=== PATIENT | female | born 1995 | race Caucasian/White ===

== ENCOUNTER 2017-09-29 16:15 | Observation (INO) | payer OTHER ==
[~2017-09-29] VITALS: Ht 167.6 cm; Wt 116.4 kg
[2017-09-29 19:51] VITALS: BP 123/68
[2017-09-29 20:17] VITALS: BP 118/67
== END 2017-09-29 21:10 | disposition home or self-care (01) ==
LOC: LDOP 16:15 → LDIP 16:28
PROVIDERS: ADMIT Obstetrics & Gynecology; ATTEND Obstetrics & Gynecology
DX: O26.893 Other specified pregnancy related conditions, third trimester (principal); R10.9 Unspecified abdominal pain; Z3A.38 38 weeks gestation of pregnancy
CPT/HCPCS: 36415; 59025; 76819; 85460; 86850; 86900; G0378; J2790; 96372

== ENCOUNTER 2017-11-16 14:42 | Emergency (ER) | payer OTHER ==
[~2017-11-16] VITALS: Ht 167.6 cm; Wt 120.0 kg
[~2017-11-16 14:42] MED LIST: PREN1TAB69 PO
[2017-11-16] MEDS ORDERED: MORPHINE SULFATE 4 MG/ML, 1ML IVPush PRN (15:30)
[2017-11-16] MEDS ORDERED: MORPHINE SULFATE 4 MG/ML, 1ML ONE (15:34)
[2017-11-16 15:41] LABS: BASOPHILS # (AUTO) 0.01 x10^3/uL (0-0.1); BASOPHILS % (AUTO) 0 % (0-1); EOSINOPHILS # (AUTO) 0.02 x10^3/uL (0-0.4); EOSINOPHILS % (AUTO) 0 % (1-7); LYMPHOCYTES # (AUTO) 1.51 x10^3/uL (1-3.4); LYMPHOCYTES % (AUTO) 9 % (22-44); MD NO; MEAN CORPUSCULAR VOLUME 82.3 fL (80-100); MEAN PLATELET VOLUME 8.7 fL (7.4-10.4); MONOCYTES # (AUTO) 0.43 x10^3/uL (0.2-0.8); MONOCYTES % (AUTO) 3 % (2-9); NEUTROPHILS # (AUTO) 14.72 x10^3/uL (1.8-6.8); NEUTROPHILS % (AUTO) 88 % (42-75); PLATELET COUNT 301 x10^3/uL (130-400); RED BLOOD COUNT 4.66 x10^6/uL (3.82-5.3); RED CELL DISTRIBUTION WIDTH 13.4 % (9.6-15.2)
[2017-11-16 15:50] LABS: ANION GAP 10 mmol/L (5-15); CHLORIDE 107 mmol/L (98-107); CREATININE 0.86 mg/dL (0.55-1.02)
[2017-11-16 15:51] LABS: ALANINE AMINOTRANSFERASE 27 U/L (12-78); ALBUMIN 2.8 g/dL (3.4-5.0)
[2017-11-16 15:53] LABS: ALKALINE PHOSPHATASE 155 U/L (45-117); BILIRUBIN,TOTAL 0.5 mg/dL (0.2-1.0); TOTAL PROTEIN 7.4 g/dL (6.4-8.2)
[2017-11-16 17:56] VITALS: BP 120/73
== END 2017-11-16 17:58 | disposition home or self-care (01) ==
LOC: ED 16:18
DX: O26.893 Other specified pregnancy related conditions, third trimester (principal); Z3A.41 41 weeks gestation of pregnancy; K80.70 Calculus of gallbladder and bile duct without cholecystitis without obstruction
CPT/HCPCS: 36415; 76700; 80053; 83690; 85025; 96374

== ENCOUNTER 2019-11-27 09:03 | Emergency (ER) | payer OTHER ==
[~2019-11-27] VITALS: Ht 167.6 cm; Wt 116.0 kg
[~2019-11-27 09:03] MED LIST changes: +IBUP-1222 PO; +MEPE100T14 PO
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
--- NOTE | 2019-11-27 10:25 | NUR ---
PATIENT RESTING IN [facility], [facility], CALL LIGHT WITHIN REACH. PATIENT REQUESTING WATER, SPOKE WITH PROVIDER, WAITING FOR T-SPINE IMAGING TO BE DONE. INFORMED PATIENT.
--- NOTE | 2019-11-27 10:38 | NUR ---
PATIENT TO XRAY.
[2019-11-27 11:32] VITALS: BP 109/67
--- NOTE | 2019-11-27 11:40 | NUR ---
Patient and significant other given discharge instructions and prescription they have confirmed that they understand the instructions, no questions asked. Patient ambulatory with steady gait to discharge desk.
== END 2019-11-27 11:41 | disposition home or self-care (01) ==
LOC: ED 10:22
DX: S16.1XXA Strain of muscle, fascia and tendon at neck level, initial encounter (principal); M54.6 Pain in thoracic spine; Z90.79 Acquired absence of other genital organ(s); V49.9XXA Car occupant (driver) (passenger) injured in unspecified traffic accident, initial encounter; Y93.89 Activity, other specified; Y92.410 Unspecified street and highway as the place of occurrence of the external cause; Y99.8 Other external cause status
CPT/HCPCS: 72072; 72125; 99284

== ENCOUNTER 2020-09-22 05:44 | Outpatient (CLI) | payer OTHER ==
[2020-09-22 06:28] VITALS: BP 118/66
[2020-09-22] MEDS ORDERED: CYCL10TA2 PO (06:50)
[2020-09-22 06:52] LABS: MICROSCOPIC NOT IND
[2020-09-22] MEDS ORDERED: CYCLOBENZAPRINE 10 MG TABLET PO PRN (07:00)
== END 2020-09-22 08:30 | disposition home or self-care (01) ==
LOC: LDOP 05:44
PROVIDERS: ATTEND Obstetrics & Gynecology Maternal & Fetal Medicine
DX: O26.893 Other specified pregnancy related conditions, third trimester (principal); M25.559 Pain in unspecified hip; Z3A.34 34 weeks gestation of pregnancy
CPT/HCPCS: 59025; 81003; 87086